=== PATIENT | female | born 1950 | race Caucasian/White ===

== ENCOUNTER → 2018-05-06 12:53 | Outpatient (CLI) | payer MEDICARE, SELFPAY | PROVIDERS: Family Provider Family Medicine; PCP Family Medicine; Visit Provider Anesthesiology Pain Medicine | DX: M54.9 Dorsalgia, unspecified (principal); M79.606 Pain in leg, unspecified | CPT/HCPCS: 72148 ==

== ENCOUNTER → 2018-10-07 12:57 | Outpatient (CLI) | payer MEDICARE, SELFPAY ==
--- NOTE | 2018-10-07 12:59 | RAD_ITS ---
STUDY: X-RAY - LUMBAR SPINE REASON FOR EXAM: Female, 68 years old. Low back pain. TECHNIQUE: AP and flexion extension view(s) of the lumbar spine were obtained. COMPARISON: None FINDINGS: Normal lumbar lordosis. There is a mild dextroscoliosis of the lumbar spine. Grade 1 anterior listhesis of L4 on L5. This is reduced on the extension views. There is retrolisthesis of L2 on L3. This is unchanged during the flexion-extension maneuvers. There is multilevel endplate spondylosis of the lumbar vertebrae. There is multi-level degenerative disc disease with multi-level disc space narrowing. Bilateral hip replacement. Prior cholecystectomy. RAD/L/S Spine Min 4 Views IMPRESSION: Degenerative changes of the spine, as detailed above. Electronically Signed: Ace White, at 10:38 EST , Service support ,
--- OUTSIDE RECORDS SUMMARY | 2018-12-09 17:13 | XMS RPT_ITS ---
:1950 Author Organization [place] Support Name Relationship Address Phone R Unavailable Unavailable Unavailable ASHLEY DONG Unavailable [address] + [place] [address] R Unavailable Unavailable Unavailable ASHLEY DONG Unavailable [address] + [place] [address] NOT GIVEN Unavailable Unavailable Unavailable ASHLEY DONG Unavailable [address] + [place], [place] [phone] ASHLEY DONG Unavailable [address] Unavailable [place], [place] [phone] R Unavailable Unavailable Unavailable ASHLEY DONG Unavailable [address] + [place] [address] NOT GIVEN Unavailable Unavailable Unavailable ASHLEY DONG Unavailable [address] + [place], [place] [phone] ASHLEY DONG Unavailable [address] Unavailable [place], [place] [phone] NOT GIVEN Unavailable Unavailable Unavailable ASHLEY DONG Unavailable [address] + [place], [place] [phone] ASHLEY DONG Unavailable [address] Unavailable [place], [place] [phone] NOT GIVEN Unavailable Unavailable Unavailable ASHLEY DONG Unavailable [address] + [place], [place] [phone] ASHLEY DONG Unavailable [address] Unavailable [place], [place] [phone] Care Team Providers Name Role Phone Sena VASQUEZ Attending Unavailable Sena VASQUEZ Attending Unavailable NITA VASQUEZ MD Admitting Unavailable NITA VASQUEZ MD Attending Unavailable NITA VASQUEZ MD Primary Care Unavailable NITA VASQUEZ MD Consulting Unavailable PROVIDER, UNKNOWN Consulting Unavailable PROVIDER, UNKNOWN Consulting Unavailable PROVIDER, UNKNOWN Consulting Unavailable NITA VASQUEZ MD Admitting Unavailable NITA VASQUEZ MD Attending Unavailable NITA AVSQUEZ MD Primary Care Unavailable NITA VASQUEZ MD Consulting Unavailable PROVIDER, UNKNOWN Consulting Unavailable PROVIDER, UNKNOWN Consulting Unavailable PROVIDER, UNKNOWN Consulting Unavailable PAVITHRA CERON Admitting Unavailable PAVITHRA CERON Attending Unavailable PAVITHRA CERON Primary Care Unavailable NITA VASQUEZ MD Consulting Unavailable PROVIDER, UNKNOWN Consulting Unavailable PROVIDER, UNKNOWN Consulting Unavailable PROVIDER, UNKNOWN Consulting Unavailable NITA VASQUEZ MD Admitting Unavailable NITA VASQUEZ MD Attending Unavailable NITA VASQUEZ MD Primary Care Unavailable NITA VASQUEZ MD Consulting Unavailable PROVIDER, UNKNOWN Consulting Unavailable PROVIDER, UNKNOWN Consulting Unavailable PROVIDER, UNKNOWN Consulting Unavailable Elenita Jerez Attending Unavailable Nita Vasquez Referring Unavailable Elenita Jerez Attending Unavailable Elenita Jerez Referring Unavailable Nita Vasquez Primary Care Unavailable Jarod Littlejohn Attending Unavailable Jarod Littlejohn Referring Unavailable Nita Vasquez Primary Care Unavailable PROBLEMS PROBLEMS DATE TYPE CONDITION / ATTENDING STATUS SOURCE CODE 10/07/2018 Unknown M54.5 - Low Elenita Jerez Active [facility] M54.5(ICD-10) Hospital Repository 09/18/2018 Admitting Unknown / Sena VASQUEZ [facility]ly [facility] diagnosis UNK(Unknown) Hospital Repository PROCEDURES PROCEDURES No Procedure Records FoundRESULTS RESULTS ORTHOPEDIC VISIT Observed: 10/11/2018 Status: F Source: [facility] 10:09 AM [facility] REPOSITORY [facility] [address] [place] [address] OFFICE VISIT Date of Service: 10/07/18 MR#: [id number] Acct: [id number] Name: SHIRLEY DONG Rep #: [id number] : 1950 Provider: Elenita Jerez MD Age/Sex: 68/F [place] [facility] [place]: [place] Intake Vital Signs10/07/18 Height 5 ft 2 in 10/07/18 Weight: 262 lb 10/07/18 Body Mass Index (BMI) 47.9 Intake Visit Reasons: low back Allergies latex Allergy (Verified 10/07/18 13:10) unknown morphine Allergy (Verified 10/07/18 13:10) unknown Sulfa (Sulfonamide Antibiotics) Allergy (Verified 10/07/18 13:10) unknown Medications buprenorphine 7.5 mcg/hour weekly transdermal patch 1 patch TRANSDERMAL Q7D 10/07/18 [History Confirmed 10/07/18] furosemide 40 mg tablet 40 mg PO DAILY 10/07/18 [History Confirmed 10/07/18] levothyroxine 200 mcg tablet 200 mcg PO DAILY 10/07/18 [History Confirmed 10/07/18] tapentadol 75 mg tablet 75 mg PO Q6H PRN 10/07/18 [History Confirmed 10/07/18] tapentadol 75 mg tablet 75 mg PO Q6H PRN 10/07/18 [History Confirmed 10/07/18] HPI low back: Details: SHIRLEY DONG is a 68 year old RHD F here today referred by Dr Littlejohn for low back pain. Patient states that she has low back pain 50% and bilateral lateral hip pain and bilateral thigh strain, left greater than right, 50% for about 10 years with no known injury. She has a history of bilateral hip replacements and bilateral total knee arthroplasties. She states he last saw her surgeon 2 years ago. Patient has increased pain standing and walking and improved with ice, heating, and sitting. She is on a butrans patch and lucna for the past [address] Littlejohn. She also uses voltaren. Patient denies any radiating pain or numbness and tingling. She tried physical therapy about 5 years ago which increased her pain so she was not able to complete it. She has not tried aqua therapy, tens unit. She has tried accupuncture, which helped, but does not continue this. She uses a walker to ambulate due to her pain. Patient notes that she has seen Dr Littlejohn for the past 5 years and alternates L5-S1 epidural injections with SI joint injections. She feels the SI joint injections help more than the L5-S1 SALONI. She has had no spine surgery. She denies bowel or bladder issues or hand dexterity issues. She uses a walker or cane due to pain for the past 5 years. She has depression, hypothyroidism and asthma. She is a retired industrial food production machine operator. She denies nicotine use. ROS Const Reports system reviewed and no additional complaints, except as docu Eyes Reports system reviewed and no additional complaints, except as docu ENT Reports system reviewed and no additional complaints, [facility] Reports system reviewed and no additional complaints, [facility] Resp Reports system reviewed and no additional complaints, [facility] GI Reports system reviewed and no additional complaints, [facility] Reports system reviewed and no additional complaints, [facility] Musc Reports back pain Skin/Breast Reports system reviewed and no additional complaints, except [facility] Neuro Yes system reviewed and no additional complaints, [facility] Psych Reports system reviewed and no additional complaints, [facility] Endo Reports system reviewed and no additional complaints, except as docu Ortho Exam Spine Neuro: Yes Chow's (negative bilaterally), Clonus (none bilaterally), Babinski (downgoing bilaterally), Straight Leg Raise (negative bilaterally) and Light Touch Sensation (intact throughout) General: alert, oriented x3 Skin: Yes dysraphism (none) Capillary Refill <2sec: Yes Palpable Pulses: 1+ dp/pt pulses bilaterally Gait: antalgic, other (able to stand on heels and toes with assistance) Motor: strength 5/5 throughout Sensory Exam: no sensory deficits noted DTR's: Rt Triceps: 2+, Lt Triceps: 2+, Rt Biceps: 2+, Lt Biceps: 2+, Rt Brachioradialis: 2+, Lt Brachioradialis: 2+, Rt Patellar: 2+, Lt Patellar: 2+, Rt Ankle: 2+, Lt Ankle: 2+ Plantar Reflexes: Downgoing: bilateral Coordination: Romberg test normal Details: positive sagittal balance, but will correct to neutral with coaching SPINE TESTING CERVICAL THORACIC LUMBAR SLR: Negative Musculoskeletal General: Yes decreased ROM Cervical Spine: cervical muscular tenderness, pain with cervical ROM Thoracic/Lumbar Spine: straight leg raise negative bilaterally, pain with thoraco-lumbar ROM (pain worse with forward flexion, less painful with extension), thoraco-lumbar ROM limited, paraspinal tenderness Sacroiliac joints: bilateral Strength 0=absent - 5=normal Deltoid R (C5): 5, Deltoid L (C5): 5, R Bicep (C5-6): 5, L Bicep (C5-6): 5, R Wrist Extensor (C6): 5, L Wrist Extensor (C6): 5, R Tricep (C7): 5, L Tricep (C7): 5, R Finger Flexors (C8): 5, L Finger Flexors (C8): 5, R First Dorsal Interossei (C8): 5, L First Dorsal Interossei (C8): 5, R Hip Flexor (L1-3): 5, L Hip Flexor (L1-3): 5, R Quadriceps (L2-4): 5, L Quadriceps (L2-4): 5, R Anterior Tibialis (L4-5): 5, L Anterior Tibialis (L4- 5): 5, R Hamstrings (L5-S1): 5, L Hamstrings (L5-S1): 5, GS (S1): 5, L GS (S1): 5, R Peroneals (S1): 5, L Peroneals (S1): 5 Assessment AND Plan Problems 1. Chronic bilateral low back pain without sciatica M54.5; G89.29 2. Neck pain M54.2 Plan Imaging XR lumbar spine 10/07/2018 reveals diffuse spondylosis with thoracolumbar kyphosis and autofusion. there is mild L4-5 anterolisthesis without increased motion with flexion and extension MRI lumbar spine 05/06/2018 reveals diffuse spondylosis with thorcolumbar kyphosis with autofusion at T11-L1. There is L4-5 spondylolisthesis with bilateral lateral recess stenosis. L2-3, L3-4 spinal stenosis I/R/P: 1. chronic neck and back pain 2. bilateral lateral hip pain, does not extend past the knee 3. SI joint pain 4. chronic opioid use 5. BMI 48 Ms. Dong presents with back pain and SI joint pain. The natural history and course of the symptomatology of back and SI joint pain was discussed in detail with the patient. I answered all questions regarding the mode of onset, pathophysiology, symptoms, imaging findings, treatment options (both non-operative and operative) regarding her diagnosis. It is difficult to assess what component of her discomfort is from her lumbar spinal stenosis/thoracolumbar kyphosis veruss SI joint pain and myofascial pain. She admits to minimal activity. Recommend physical therapy to include aquatherapy. Recommend she return to accupuncture as this has provided her significant improvement of her pain. Recommend TENS unit. Counseled on controlled weight loss. Follow up after completion if pain is not improved or sooner if issues arise. Plan of care discussed. All questions answered. The patient, and daughter verbalized understanding of the disease process and agreed to the treatment plan formulated for this visit. Orders Orders: Coding Level of Care Code Off vis,new,level 4 Diagnoses Chronic bilateral low back pain without sciatica M54.5; G89.29 Back pain location: low back pain Chronicity: chronic Back pain laterality: bilateral Sciatica presence: without sciatica Neck pain M54.2 10/11/18 1009 <Electronically signed by Elenita Jerez MD> Date Elenita Jerez MD Cosigner Signature: Date (if applicable) CC: Jarod Littlejohn MD L/S SPINE MIN 4 Observed: 10/07/2018 Status: F Source: [facility] VIE[facility] 12:59 PM [facility] REPOSITORY [facility] Imaging Services [address] [place] [address] L/S Spine Min 4 Views MR#: [id number] Acct: [id number] Name: SHIRLEY DONG Rep #: [id number] : 1950 F 68 From: Ace White MD PCP: Nita Vasquez MD Status: REG CLI Study: L/S Spine Min 4 Views Date of Exam: 10/07/18 Exam# [id number] Ordering Dr: Elenita Jerez MD STUDY: X-RAY - LUMBAR SPINE REASON FOR EXAM: Female, 68 years old. Low back pain. TECHNIQUE: AP and flexion extension view(s) of the lumbar spine were obtained. COMPARISON: None FINDINGS: Normal lumbar lordosis. There is a mild dextroscoliosis of the lumbar spine. Grade 1 anterior listhesis of L4 on L5. This is reduced on the extension views. There is retrolisthesis of L2 on L3. This is unchanged during the flexion-extension maneuvers. There is multilevel endplate spondylosis of the lumbar vertebrae. There is multi-level degenerative disc disease with multi-level disc space narrowing. Bilateral hip replacement. Prior cholecystectomy. RAD/L/S Spine Min 4 Views IMPRESSION: Degenerative changes of the spine, as detailed above. Electronically Signed: Ace White, at 10:38 EST , Service support , CC: Elenita Jerez MD; Nita Vasquez MD Installer Inspector Final: Signed CBC Collected: 09/18/2018 Status: F Source: [facility] 5:45 PM HOSPITAL REPOSITORY TYPE CODE TESTS RESULT OUT OF RANGE REFERENCE UNITS LAB L200.0100 4.5-10.0 x10(3) Normal WBC 7.0 LAB L200.0200 3.30-5.00 x10(6) Normal RBC 4.57 LAB L200.0210 12.0-16.0 g/dL Normal HGB 13.3 LAB L200.0220 36.0-48.0 % Normal HCT 41.3 LAB L200.0230 80.0-99.0 fl Normal MCV 90.3 LAB L200.0240 28.5-32.9 pg Normal MCH 29.0 LAB L200.0250 33.0-36.0 g/dL Low MCHC 32.1 LAB L200.0260 12.5-15.7 % Normal RDW 15.3 LAB L200.0270 150-450 X10(3) Normal PLT 257 LAB L200.0290 7.5-9.5 fl Low MPV 7.4 LAB L200.0300 45.0-73.0 % Normal NEUT% 58.6 LAB L200.0310 16.0-48.0 % Normal LYMPH% 25.2 LAB L200.0320 4.3-11.2 % Normal MONO% 8.5 LAB L200.0330 0.5-4.9 % High EOS% 6.7 LAB L200.0340 0.0-1.0 % Normal BASO% 1.0 LAB L200.0350 1.40-6.50 x10(3) Normal NEUT# 4.10 LAB L200.0360 1.00-3.50 x10(3) Normal LYMPH# 1.80 LAB L200.0370 0.30-0.80 x10(3) Normal MONO# 0.60 LAB L200.0380 0.00-0.54 x10(3) Normal EOS# 0.50 LAB L200.0390 0.00-0.10 x10(3) Normal BASO# 0.10 Performed By: #### L200.0010 #### ML - [facility] [address] [place] [address] [facility] Collected: 09/18/2018 Status: F Source: [facility] 5:45 PM HOSPITAL REPOSITORY TYPE CODE TESTS RESULT OUT OF RANGE REFERENCE UNITS LAB L100.0060 82-115 mg/dL High GLUCOSE 117 LAB L100.0110 8-23 mg/dL BUN Normal 16 LAB L100.0131 0.50-0.90 mg/dL High CREATININE 1.09 LAB L100.0140 8.8-10.2 mg/dL CALCIUM Normal 9.2 LAB L100.0150 135-145 mmol/L SODIUM Normal 143 LAB L100.0160 3.5-5.0 mmol/L Normal POTASSIUM 4.2 LAB L100.0170 98-107 mmol/L CHLORIDE Normal 104 LAB L100.0180 22-29 mmol/L TCO2 Normal 25 LAB L100.0185 15-22 mmol/L ANION Normal GAP 18.2 LAB L100.0200 6.4-8.3 g/dL TOTAL Normal PROTEIN 7.2 LAB L100.0210 3.5-5.2 g/dL ALBUMIN Normal 3.7 LAB L100.0220 0.2-1.2 mg/dL TOTAL Normal BILIRUBIN 0.3 LAB L100.0240 5-32 U/L AST Normal 27 LAB L100.0250 5-33 U/L ALT Normal 21 LAB L100.0260 35-105 U/L High ALK. PHOS 177 LAB L100.0262 1.5-4.5 g/dL Normal GLOBULIN,CALC 3.5 LAB L100.0264 1.1-2.5 Low A:G RATIO 1.05 LAB L100.0274 eGFR Normal nonAFR Nicki 50 LAB L100.0275 eGFR if Normal AFR NICKI > 60 ml/min/1.73m 2 Result Comment: eGFR >= 60 Indicates normal kidney function. * eGFR IS AN ESTIMATE * (AFR NICKI = ) (non-AFR AM = NON-) MDRD calculation used in the eGFR should not be used to dose medications. For further limitations of the eGFR please refer to the Physician Website or the National Kidney Disease Education Program website (www.nkdep.nih.gov). Performed By: #### L100.0005 #### - LABORATORY [address] [place] [address] TROPONIN T Collected: 09/18/2018 Status: F Source: [place] 5:45 PM [facility] REPOSITORY TYPE CODE TESTS RESULT OUT OF RANGE REFERENCE UNITS LAB L301.0120 0-0.010 ng/mL Normal TROPONIN T <0.010 Performed By: #### L301.0120, L301.0460 #### [facility] [address] [place] [address] PRO-BNP Collected: 09/18/2018 Status: F Source: [place] 5:45 PM [facility] REPOSITORY TYPE CODE TESTS RESULT OUT OF RANGE REFERENCE UNITS LAB L301.0460 pg/mL Normal PRO-BNP 231 Result Comment: HF UNLIKELY: NT-PRO BNP <300 pg/mL HF LIKELY: NT-PRO BNP >450 pg/mL (AGE <50) NT-PRO BNP >900 pg/mL (AGE 50-75) NT-PRO BNP >1800 pg/mL (AGE >75) HF VERY LIKELY: NT-PRO BNP >10,000 pg/mL SOURCE: PRIDE ALGORITHM FOR PRO-BNP; CRITICAL PATHWAYS IN CARDIOLOGY VOLUME 3, NUMBER 4; AUGUST 2004 Performed By: #### L301.0120, L301.0460 #### ML - LABORATORY [address] [place] [address] ALK PHOS ISO Collected: 09/18/2018 Status: F Source: [facility] 5:42 PM HOSPITAL REPOSITORY TYPE CODE TESTS RESULT OUT OF REFERENCE UNITS RANGE LAB L800.0032 39-117 IU/L High ALKALINE 169 PHOSPH Result Comment: Performed at: - [facility] [id number] Paunch Trimmer: Cosme Sharma PhD, Phone: [phone] LAB L800.0034 18-85 % Normal LIVER FRACTION: 47 LAB L800.0036 14-68 % Normal BONE FRACTION: 52 LAB L800.0038 0-18 % Normal INTESTINAL FRAC 1 Result Comment: Performed at: - [facility] [id number] Paunch Trimmer: Cosme Sharma PhD, Phone: [phone] Performed By: #### L800.0029 #### [place] [address] CHEST (TWO VIEWS) Observed: 09/18/2018 Status: F Source: [facility] - CXR 12:00 AM HOSPITAL REPOSITORY [address] [address] Name: SHIRLEY DONG Phys: Sena VASQUEZ M.D. : [birth year] Age: 68 Sex: F Acct: [id number] Loc: LAB Exam Date: 09/18/18 Status: REG I Radiology No.: [id number] Unit Number: [id number] Exam # Type/Exam [id number] RAD / CHEST (TWO VIEWS) - CXR 2 views of the chest Indication: Short of breath Comparison: June 2017 Findings: The lungs and pleural spaces are clear. The cardiac silhouette is within normal size limits. The pulmonary vasculature is unremarkable in appearance. Impression: Clear lungs. Professional interpretation provided by [facility], [place] on [id number]. Thank you for this referral. <<Signature on File>> Reported By: ISI MARKHAM M.D. Signed In NovaPro By: ISI MARKHAM M.D. << Signature on File>> Reported By: ISI MARKHAM M.D. Signed By: ISI MARKHAM M.D. Tests performed at: [place] [address] TSH Collected: 07/14/2018 Status: F Source: [facility] [place] 1:04 PM [facility] REPOSITORY TYPE CODE TESTS RESULT OUT OF RANGE REFERENCE UNITS LAB TSH(LOINC) 0.34 - 5.60 uIU/ml TSH 3.25 Performed By: #### [id number] #### [place] [address] LIPID PROFILE Collected: 07/14/2018 Status: F [facility] REPOSITORY TYPE CODE TESTS RESULT OUT OF REFERENCE UNITS RANGE LAB LIPID PROFILE(LOIN C) LIPID PROFILE Result Comment: LIPID PROFILE LAB TRIGLYCERIDE(LOINC) 0 - 150 mg/dl TRIGLYCERIDE 136 LAB CHOLESTEROL(LOINC) 0 - 200 mg/dl CHOLESTEROL 177 LAB HDL(LOINC) 40 - 60 mg/dl HDL 45 LAB CHOL/HDL(LOINC) 0.0 - 5.0 CHOL/HDL 3.9 LAB LDL(LOINC) 0 - 129 mg/dl LDL 105 Performed By: #### [id number] #### [place] [address] CMP WITH EGFR Collected: 07/14/2018 Status: F [facility] REPOSITORY TYPE CODE TESTS RESULT OUT OF RANGE REFERENCE UNITS LAB CMP with eGFR(LOINC) CMP with eGFR Result Comment: COMPREHENSIVE METABOLIC PANEL LAB SODIUM(LOINC) 136 - 145 mmol/l SODIUM 140 LAB POTASSIUM(LOINC) 3.5 - 5.1 mmol/L POTASSIUM 4.2 LAB CHLORIDE(LOINC) 98 - 107 mmol/L CHLORIDE 102 LAB CO2(LOINC) 21.0 - mmol/L 31.0 CO2 29.2 LAB GLUCOSE(LOINC) 74 - 106 mg/dl GLUCOSE 92 LAB BUN(LOINC) 6 - 20 mg/dl BUN 16 LAB CREATININE(LOINC) 0.6 - 1.2 mg/dl CREATININE 1.1 LAB AST/SGOT(LOINC) 13 - 39 U/L AST/SGOT 21 LAB ALK PHOS(LOINC) 38 - 126 U/L ALK PHOS High 165 LAB CALCIUM(LOINC) 8.6 - mg/dl 10.2 CALCIUM 9.2 LAB TOTAL 6.4 - 8.3 g/dl PROTEIN(LOINC) TOTAL PROTEIN 6.9 LAB ALBUMIN(LOINC) 3.4 - 4.8 g/dL ALBUMIN 4.0 LAB GLOBULIN(LOINC) 1.5 - 3.8 G/DL GLOBULIN 2.9 LAB A/G RATIO(LOINC) 0.9 - 1.6 A/G RATIO 1.4 LAB TOTAL BILI(LOINC) 0.0 - 1.5 mg/dl TOTAL BILI 0.5 LAB B/C RATIO(LOINC) 0 - 30 ratio B/C RATIO 15 LAB ALT/SGPT(LOINC) 8 - 35 U/L ALT/SGPT 17 LAB ANION GAP(LOINC) 10 - 20 mmol/L ANION GAP 13 LAB AGE(LOINC) years AGE 67 LAB eGFR(LOINC) 60 - 999 ML/MINUTE eGFR Low 49 LAB eGFR(AA)(LOINC) 60 - 999 ML/MINUTE eGFR(AA) 60 Result Comment: ACCORDING TO THE NATIONAL KIDNEY DISEASE EDUCATION PROGRAM(NKDE), A NORMAL eGFR IS A VALUE GREATER THAN OR EQUAL TO 60 ML/MIN/1.73 SQ METERS. CHRONIC KIDNEY DISEASE: <60mL/MIN/1.73 SQ METERS KIDNEY FAILURE: <15mL/MIN/1.73 SQ METERS THIS TEST SHOULD ONLY BE USED FOR PATIENTS 18 YEARS OF AGE AND OLDER. Performed By: #### [id number] #### [facility],[address] [place] [address] SPINE LUMBAR Observed: 05/06/2018 Status: F Source: [place] (ROUTINE) 12:56 PM [facility] REPOSITORY [facility] Imaging Services [address] [place] [address] Spine Lumbar (Routine) MR#: [id number] Acct: [id number] Name: SHIRLEY DONG Rep #: [id number] : 1950 F 67 From: Akbar Rosario MD PCP: Nita Vasquez MD Status: REG CLI Study: Spine Lumbar (Routine) Date of Exam: 05/06/18 Exam# [id number] Ordering Dr: Jarod Littlejohn MD STUDY: MRI LUMBAR SPINE WITHOUT CONTRAST REASON FOR EXAM: Female, 67 years old. Severe back and leg pain. TECHNIQUE: Standardized fat and water weighted pulse sequences were obtained in the sagittal and axial planes. COMPARISON: None FINDINGS: T8-T9: (Sagittal only). Minimal anterior posterior marginal spurs. Normal endplates. Normal disc height and morphology. Mild loss of disc hydration. Normal central canal and bilateral intervertebral neural foramina. T9-T10: (Sagittal only). Normal endplates. Normal disc height with mild loss of disc hydration. Normal disc morphology. Normal central canal and bilateral intervertebral neural foramina. T10-T11: (Sagittal only). Normal endplates. Moderate disc space narrowing with moderate loss of disc hydration. No ventral extradural defect. Normal central canal and bilateral intervertebral neural foramina. T11-T12: Anterior marginal spurs and small posterior marginal spurs. Pronounced disc space height narrowing. Normal central canal and bilateral lateral recesses. Mild asymmetric degenerative facet arthropathy. Capacious left intervertebral neural foramen. Deformity of the right facet joint may be posttraumatic. T12-L1: Anterior wedging and ankylosis of the T12 and L1 vertebral bodies. Anterior posterior marginal spurs. Capacious central canal. Mild to moderate degenerative facet arthropathy. Normal bilateral intervertebral neural foramina. Normal lumbar lordosis. There is no substantial scoliosis. Normal conus medullaris that terminates at the upper L1 vertebral body level. L1-2: Prominent anterior marginal spurs and prominent posterior marginal spurs. Old L1 anterior wedge compression fracture. Pronounced loss of disc height with marked irregularities of the vertebral endplates. Moderately pronounced central canal stenosis secondary to prominent dorsal epidural lipomatosis. The AP canal diameter is 6 mm. Mild to moderate asymmetric degenerative facet arthropathy. Asymmetric posterior ligamenta flava hypertrophy. Normal bilateral lateral recesses. Moderate stenosis of the left intervertebral neural foramen. Normal right intervertebral neural foramen. L2-3: Pronounced disc height narrowing with marked loss of disc hydration. Dark irregularity of the vertebral endplates towards the right side is most likely due to degenerative sclerosis. Minimal degenerative retrolisthesis of L2 on L3. No extruded disc fragment. Pronounced flattening central canal stenosis. The AP canal diameter is 3.3 mm. This is secondary to prominent dorsal epidural lipomatosis. Mild posterior ligamenta flava hypertrophy. Mild to moderate asymmetric degenerative facet hypertrophy. Normal bilateral lateral recesses. Normal left intervertebral neural foramen. Mild stenosis of the right intervertebral neural foramen. L3-4: Normal endplates. Mild disc space height narrowing. Moderately pronounced flattening central canal stenosis secondary to prominent dorsal epidural lipomatosis. The AP canal diameter is 6 mm. No extruded disc fragment. Mild to moderate asymmetric degenerative facet hypertrophy. Posterior ligamenta flava hypertrophy. Normal bilateral lateral recesses. Normal bilateral intervertebral neural foramina. L4-5: Normal endplates. Mild disc space height narrowing with degenerative anterolisthesis of L4 on L5. Mild central canal stenosis. The AP canal diameter is 8.4 mm. Prominent left posterior ligamentum flavum hypertrophy. Prominent bilateral mediolateral synovial hypertrophy. Moderate stenosis of the bilateral lateral recesses. Pronounced bilateral degenerative facet hypertrophy. Mild stenosis of the bilateral intervertebral neural foramina. L5-S1: Normal endplates. Normal disc height, hydration and morphology. Normal central canal and bilateral lateral recesses. Moderately pronounced bilateral degenerative facet hypertrophy. Normal bilateral intervertebral neural foramina. Normal visualized sacral ala. Normal visualized paraspinous soft tissue structures. MRI/Spine Lumbar (Routine) IMPRESSION: 1. No MRI evidence of lumbar extruded disc fragment. 2. Pronounced flattening central canal stenosis with pronounced disc space height narrowing at L2-L3 disc level and minimal degenerative retrolisthesis of L2 on L3. 3. Moderately pronounced flattening central canal stenosis at L1-L2 and L3-L4 disc space level secondary to prominent dorsal epidural lipomatosis. 4. Mild degenerative anterolisthesis of L4 on L5 with mild central canal stenosis, pronounced bilateral degenerative facet hypertrophy and moderate stenosis of the bilateral lateral recesses. 5. Moderately pronounced bilateral L5-S1 degenerative facet hypertrophy. 6. Old anterior wedge compression fractures with ankylosis of the T12 and L1 vertebral bodies. 7. Pronounced T11-T12 disc space height narrowing with capacious left T11-T12 intervertebral neural foramen and deformity of the right T11-T12 facet joint. This may be secondary to remote injury. 8. No MRI evidence of acute or subacute compression fractures of the lumbar spine and the included lower thoracic spine. COMMENT: CT of the thoracolumbar junction from at least T10 down to L3 will be very helpful for better bone detail of the old posttraumatic deformity if desired. Electronically Signed: Akbar Rosario MD at 9:30 EDT , Service support , CC: Jarod Littlejohn MD; Nita Vasquez MD Installer Inspector Final: Signed SEDRATE Collected: 11/07/2017 Status: F Source: [facility] 1:05 PM [facility] REPOSITORY TYPE CODE TESTS RESULT OUT OF REFERENCE UNITS RANGE LAB SEDRATE(FELICIANO 0 - 30 mm/hr NC) High SEDRATE 34 Performed By: #### [id number] #### [address] [address] TSH Collected: 11/06/2017 Status: F Source: [facility] 4:10 [facility] REPOSITORY TYPE CODE TESTS RESULT OUT OF RANGE REFERENCE UNITS LAB TSH(LOINC) 0.34 - 5.60 uIU/ml TSH 0.40 Performed By: #### [id number] #### [address] [address] T4 (THYROXINE) TOTAL Collected: 11/06/2017 Status: F Source: [facility] 4:10 PM [facility] REPOSITORY TYPE CODE TESTS RESULT OUT OF RANGE REFERENCE UNITS LAB T4 (THYROXINE) TOTAL(LOINC ) T4 (THYROXINE) TOTAL Result Comment: THYROXINE(T4) LAB T4(LOINC) 6.0 - 12.2 ug/dl T4 9.3 Performed By: #### [id number] #### [address] [address] FERRITIN Collected: 11/06/2017 Status: F [facility] PM [facility] REPOSITORY TYPE CODE TESTS RESULT OUT OF REFERENCE UNITS RANGE LAB FERRITIN(LO 10 - 291 ng/mL INC) FERRITIN 69 Performed By: #### [id number] #### [address] [address] VITAMIN D 1, 25 Collected: 11/06/2017 Status: F [facility] 4:10 PM [facility] REPOSITORY TYPE CODE TESTS RESULT OUT OF REFERENCE UNITS RANGE LAB VITAMIN D 1, 25 DIHYDROXY [QUEST](LOINC) VITAMIN D 1, 25 DIHYDROXY [QUEST] Result Comment: _VITAMIN D 1, 25 DIHYDROXY_ VITAMIN D, 1,25-DIHYDROXY, LC/MS/MS Reported: 11/10/2017 11:03 Status=F TEST RESULT FLAG RANGE UNITS VITAMIN D,1,25 34 18-72 pg/mL 11/10/17.1115.rfl.COMPLETE.AMRR .67837-4 (OH)2,TOTAL VITAMIN D3, 1,25 (OH)2 34 pg/mL 11/10/17.1115.rfl.COMPLETE.AMRR .1649-3 VITAMIN D2, 1,25 (OH)2 <8 pg/mL 11/10/171115.rfl.COMPLETE.AMRR .81162-5 Vitamin D3, 1,25(OH)2 indicates both endogenous production and supplementation. Vitamin D2, 1,25(OH)2 is an indicator of exogeous sources, such as diet or supplementation. Interpretation and therapy are based on measurement of Vitamin D,1,25(OH)2, Total. This test was developed and its analytical performance characteristics have been determined [place] It has not been cleared or approved by the FDA. This assay has been validated pursuant to the CLIA regulations and is used for clinical purposes. Test Performed by [facility], [employer] [place], [address] [place], [place] Oswald Bose M.D., Ph.D., Director of Laboratories , [facility] [id number] Performed By: #### [id number] #### [facility],[address] [place] [address] ALK PHOS ISOENZYMES Collected: 10/27/2017 Status: F Source: [facility] [QUEST] 2:25 PM [facility] REPOSITORY TYPE CODE TESTS RESULT OUT OF REFERENCE UNITS RANGE LAB ALK PHOS ISOENZYMES [QUEST](LOINC) ALK PHOS ISOENZYMES [QUEST] Result Comment: _ALK PHOS ISOENZYMES_ ALKALINE PHOSPHATASE ISOENZYMES Reported: 10/31/2017 04:00 Status=F TEST RESULT FLAG RANGE UNITS ALKALINE PHOSPHATASE 162 H 33-130 U/L 10/31/17.411.rfl.COMPLETE.AMRR .6768-6 LIVER ISOENZYME 55 25-69 % 10/31/17.0412.rfl.COMPLETE.AMRR BONE ISOENZYME 45 28-66 % 10/31/17.0412.rfl.COMPLETE.AMRR .00894-7 INTESTINAL ISOENZYME 0 L 1-24 % 10/31/17.0412.rfl.COMPLETE.AMRR MACROHEPATIC ISOENZYME 0 <=0 % 10/31/17.0412.rfl.COMPLETE.AMRR .70172-2 PLACENTAL ISOENZYME 0 <=0 % 10/31/17.2.rfl.COMPLETE.AMRR .27774-2 Test Performed by [facility], [facility], [address] [place] [address] Oswald Bose M.D., Ph.D., Director of Laboratories , [facility] [id number] Performed By: #### [id number] #### [facility],[address] [place] [address] CBC Collected: 10/22/2017 Status: F Source: [facility] 4:30 PM [facility] REPOSITORY TYPE CODE TESTS RESULT OUT OF RANGE REFERENCE UNITS LAB CBC(LOINC) CBC Result Comment: CBC-COMPLETE BLOOD COUNT LAB WBC(LOINC) 4.5 - 10.8 x 10EE3/UL WBC 8.4 LAB RBC(LOINC) 4.10 - x 10EE6/UL 5.30 RBC 4.53 LAB HEMOGLOBIN(LOINC) 12.0 - g/dl 16.0 HEMOGLOBIN 13.3 LAB HEMATOCRIT(LOINC) 34.0 - % 46.0 HEMATOCRIT 40.1 LAB MCV(LOINC) 80 - 99 fl MCV 89 LAB MCH(LOINC) 27 - 33 pg MCH 29 LAB MCHC(LOINC) 32 - 36 X10 3 MCHC 33 LAB RDW/CV(LOINC) 12.0 - % 15.6 RDW/CV 14.9 LAB PLATELET(LOINC) 150 - 450 x10EE3/UL PLATELET 255 LAB MPV(LOINC) 6.6 - 10.5 fl MPV 8.2 Result Comment: AUTOMATED DIFFERENTIAL LAB NEUT %(LOINC) 46.0 - 76.0 % NEUT % 61.7 LAB LYMPH %(LOINC) 20.0 - 45.0 % LYMPH % 26.8 LAB MONOS %(LOINC) 0.0 - 10.0 % MONOS % 7.5 LAB EO %(LOINC) 0.0 - 7.0 % EO % 2.8 LAB BASO %(LOINC) 0.0 - 2.0 % BASO % 1.2 LAB Lymph #(LOINC) 0.80 - 2.80 x10EE3/U L Lymph # 2.20 LAB Neut #(LOINC) 1.50 - 7.10 x10EE3/U L Neut # 5.20 LAB [place] #(LOINC) 0.20 - 1.00 x10EE3/U L [place] # 0.60 LAB EO #(LOINC) 0.00 - 0.50 x10EE3/U L EO # 0.20 LAB Baso #(LOINC) 0.00 - 0.10 x10EE3/U L Baso # 0.10 LAB MANUAL DIFF(LOINC) MANUAL DIFF N/A LAB MORPHOLOGY(LOINC ) MORPHOLOGY N/A Result Comment: {CD] Performed By: #### [id number] #### [facility],[address] [place] [address] CMP WITH EGFR Collected: 10/22/2017 Status: F Source: [facility] 4:30 PM [facility] REPOSITORY TYPE CODE TESTS RESULT OUT OF RANGE REFERENCE UNITS LAB CMP with eGFR(INC) CMP with eGFR Result Comment: COMPREHENSIVE METABOLIC PANEL LAB SODIUM(LOINC) 136 - 145 mmol/l SODIUM 139 LAB POTASSIUM(LOINC) 3.5 - 5.1 mmol/L POTASSIUM 4.0 LAB CHLORIDE(LOINC) 98 - 107 mmol/L CHLORIDE 103 LAB CO2(LOINC) 21.0 - mmol/L 31.0 CO2 28.1 LAB GLUCOSE(LOINC) 74 - 106 mg/dl GLUCOSE 88 LAB BUN(LOINC) 6 - 20 mg/dl BUN High 25 LAB CREATININE(LOINC) 0.6 - 1.2 mg/dl CREATININE 1.1 LAB AST/SGOT(LOINC) 13 - 39 U/L AST/SGOT 19 LAB ALK PHOS(LOINC) 38 - 126 U/L ALK PHOS High 133 LAB CALCIUM(LOINC) 8.6 - mg/dl 10.2 CALCIUM 9.0 LAB TOTAL 6.4 - 8.3 g/dl PROTEIN(LOINC) TOTAL PROTEIN 6.9 LAB ALBUMIN(LOINC) 3.4 - 4.8 g/dL ALBUMIN 3.8 LAB GLOBULIN(LOINC) 1.5 - 3.8 G/DL GLOBULIN 3.1 LAB A/G RATIO(LOINC) 0.9 - 1.6 A/G RATIO 1.2 LAB TOTAL BILI(LOINC) 0.0 - 1.5 mg/dl TOTAL BILI 0.4 LAB B/C RATIO(LOINC) 0 - 30 ratio B/C RATIO 23 LAB ALT/SGPT(LOINC) 8 - 35 U/L ALT/SGPT 20 LAB ANION GAP(LOINC) 10 - 20 mmol/L ANION GAP 12 LAB AGE(LOINC) years AGE 67 LAB eGFR(LOINC) 60 - 999 ML/MINUTE eGFR Low 49 LAB eGFR(AA)(LOINC) 60 - 999 ML/MINUTE eGFR(AA) 60 Result Comment: ACCORDING TO THE NATIONAL KIDNEY DISEASE EDUCATION PROGRAM(NKDE), A NORMAL eGFR IS A VALUE GREATER THAN OR EQUAL TO 60 ML/MIN/1.73 SQ METERS. CHRONIC KIDNEY DISEASE: <60mL/MIN/1.73 SQ METERS KIDNEY FAILURE: <15mL/MIN/1.73 SQ METERS THIS TEST SHOULD ONLY BE USED FOR PATIENTS 18 YEARS OF AGE AND OLDER. Performed By: #### [id number] #### [place] [address] TSH Collected: 10/22/2017 Status: F Source: [facility] 4:30 PM [facility] REPOSITORY TYPE CODE TESTS RESULT OUT OF RANGE REFERENCE UNITS LAB TSH(LOINC) 0.34 - 5.60 uIU/ml TSH 1.12 Performed By: #### [id number] #### [place] [address] IRON Collected: 10/22/2017 Status: F Source: [facility] 4:30 PM [facility] REPOSITORY TYPE CODE TESTS RESULT OUT OF RANGE REFERENCE UNITS LAB IRON(LOINC) 50 - 170 ug/dl Low IRON 47 Performed By: #### [id number] #### [place] [address] ALLERGIES ALLERGIES DATE TYPE / CODE NAME / CODE REACTION SEVERITY SOURCE 10/07/2018 Drug Sulfa Unknown Unknown [facility] All[facility]/4160 (Sulfonamide [place] [address](SNOMED Antibiotics)/ Repository CT) [id number](RX NORM) 10/07/2018 Drug morphine/F006 Unknown Unknown [facility] Allergy/4160 500743(RXNORM [facility](SNOMED ) Repository CT) 10/07/2018 Drug latex/[id number] Unknown Unknown [facility] Allergy/4160 921(RXNORM) [place] [id number](SNOMED Repository CT) ENCOUNTERS ENCOUNTERS ADMIT/DISCHARGE ACCOUNT ADMITTING ENCOUNTER LOCATION SOURCE NUMBER CLASS 10/07/2018 [id number] [address] [facility] Repository 10/07/2018/ [id number] Ambulatory BMSBuilding:B [place] 9 1 MS.SHOSHANA [facility] Repository 10/03/2018 [id number] Ambulatory UNIBuilding:C [place] 5 XOCHITL [facility] Repository 09/18/2018 [id number] Ambulatory UNIBuilding:L [place] 9 AB [facility] Repository 07/14/2018/ [id number] NITA VASQUEZ Ambulatory [place] 8 [facility] Repository 05/06/2018 [id number] Ambulatory [place] [facility] 7 [facility] ing:MRI Repository 11/06/2017/ [id number] OSMANY, [facility] Repository 10/27/2017/ [id number] NITA VASQUEZ Ambulatory [facility] 8 [facility] Repository 10/22/2017/ [id number] NITA VASQUEZ Ambulatory [facility] 8 [facility] Repository PAYERS PAYERS ENCOUNTER GUARANTOR PAYER SUBSCRIBER SOURCE 10/07/2018 SHIRLEY J Primary SHIRLEY J [facility] [id number] Insurance:HUMANA SAYREDOB: [facility] [address] MEDICARE PP[place]olicy [id number] Number: Repository [id number]: 330 [id number] [phone] (HP) Date:[id number] [address] [place] [phone]: 10/07/2018 Secondary NOT GIVENUNK [facility] Insurance:SELF PAY [facility] Number: Effective Repository Date:2018-10-07 10/07/2018 SHIRLEY J Primary SHIRLEY J [place] [id number] Insurance:HUMANA SAYREDOB: [facility] [address] MEDICARE PPOPolicy [id number] Number: Repository [id number]: 330 [id number] [phone] (HP) Date:[id number] [address] [place] [phone]: 10/07/2018 Secondary NOT GIVENUNK [facility] Insurance:SELF PAY [facility] Number: Effective Repository Date:2018-10-07 10/03/2018 SHIRLEY J Primary SHIRLEY Maribell ROMAN [facility] [id number] Insurance:[facility] [place], [place] Number: [id number]: 330 [id number] [phone] (HP) Date:[address] [place] [address]QV: 09/18/2018 SHIRLEY J Primary SHIRLEY Maribell ROMAN [facility] [id number] Insurance:[facility] CHOICE MEDICAREPolicy Repository [place], [place] Number: [id number]: (330) [id number] [phone] (HP) Date:[address] [place] [address]EI: 07/14/2018 SHIRLEY SAYREDOB: Primary SHIRLEY Maribell Boyd [id number] Insurance:HUMAN SAYREDOB: [facility] [address] [employer] [id number] [place] [address] Repository , [place] Number: RDNWSTRASJENNIFER, [id number]: [id number] [place] [id number] Date:Plan Name: () 05/06/2018 SHIRLEY J Primary SHIRLEY Maribell [facility] [id number] Insurance:HUMAN SAYREDOB: [facility] [id number] Number: Repository [id number]: 330 [id number] [phone] (HP) Date:[id number] [address] [place] [phone]: 05/06/2018 Secondary NOT GIVENUNK [facility] Insurance:SELF PAY [facility] Number: Effective Repository Date:2018-05-05 11/06/2017 SHIRLEY SAYREDOB: Primary SHIRLEY Maribell Boyd [id number] Insurance:HUMAN SAYREDOB: [facility] [address] MEDICARE ADVANTAGE [id number] [address] Repository [place] Number: RDNWSTRAASIYA, [id number]: [id number] [place] [id number] Date:Plan Name: () 10/27/2017 SHIRLEY SAYEDUARDOOB: Primary SHIRLEY SAYREDOB: Donn [place] [id number] Insurance:HUMANA [id number] [address] MEDICARE ADVANTAGE [address] [facility] [place], [facility], Repository [place] Number: [place] [id number]: [id number] Date:Plan Name: () 10/22/2017 SHIRLEY SAYEDUARDOOB: Primary SHIRLEY SAYREDOB: Donn [place] [id number] Insurance:HUMANA [id number] [address] MEDICARE ADVANTAGE [address] [facility] [place], [facility], Repository [place] Number: [place] [id number]: [id number] Date:Plan Name: ()
== END ==
PROVIDERS: Family Provider Family Medicine; PCP Family Medicine; Referring Provider Orthopaedic Surgery; Visit Provider Orthopaedic Surgery
DX: M54.5 Low back pain (principal)
CPT/HCPCS: 72110

== ENCOUNTER → 2019-11-25 10:39 | Outpatient (CLI) | payer MEDICARE, SELFPAY ==
[2019-11-25 14:26] LABS: Amphetamine Urine VISTA NEGATIVE (<1000 ng/mL); Barbiturate Urine VISTA NEGATIVE (< 200 ng/mL); Benzodiazepine Urine VISTA NEGATIVE (< 200 ng/mL); Cocaine Urine VISTA NEGATIVE (< 300 ng/mL); Ecstacy Urine VISTA NEGATIVE (< 500 ng/mL); Methadone Urine VISTA NEGATIVE (< 300 ng/mL); PCP Urine VISTA NEGATIVE (< 25 ng/mL); THC Urine VISTA NEGATIVE (< 50 ng/mL); Vista UDS pH Range 5
== END ==
PROVIDERS: PCP Family Medicine; Referring Provider Anesthesiology Pain Medicine; Visit Provider Anesthesiology Pain Medicine
DX: F11.20 Opioid dependence, uncomplicated (principal)
CPT/HCPCS: 80307

== ENCOUNTER → 2020-07-26 10:44 | Outpatient (CLI) | payer MEDICARE, SELFPAY ==
--- NOTE | 2020-07-26 11:15 | RAD_ITS ---
STUDY: X-RAY - CERVICAL SPINE REASON FOR EXAM: Female, 69 years old. CHRONIC PAIN, NKI TECHNIQUE: 3 view(s) of the cervical spine were obtained. COMPARISON: None FINDINGS: Normal anterior atlantoaxial articulation. Normal odontoid process. There is straightening of the normal cervical lordosis. There is multi-level endplate spondylosis. There is multi-level degenerative disc disease with multilevel disc space narrowing. Normal visualized intervertebral neuroforamina. The soft tissue structures are unremarkable. RAD/Cerv Spine 2 or 3 Views IMPRESSION: Multilevel spondylosis and disc space narrowing. Electronically Signed: Ace White, at 13:08 EST , Service support ,
== END ==
PROVIDERS: PCP Family Medicine; Referring Provider Anesthesiology Pain Medicine; Visit Provider Anesthesiology Pain Medicine
DX: M54.2 Cervicalgia (principal)
CPT/HCPCS: 72040

== ENCOUNTER 2021-11-07 13:23 | Outpatient (CLI) | payer MEDICARE, SELFPAY ==
--- NOTE | 2021-11-07 13:32 | RAD_ITS ---
We are attempting to reach an attending provider to discuss findings. An addendum with communication details will be sent when the communication is complete. STUDY: X-RAY - LUMBAR SPINE REASON FOR EXAM: Female, 71 years old. FALL technologist reports the patient fell today. TECHNIQUE: 2 view(s) of the lumbar spine were obtained. COMPARISON: October 07, 2018 lumbar spine x-ray FINDINGS: There is abnormal interval increased angulation, kyphosis, at the level of L1 L2 widened appearance of the facets and posterior disc space with retrolisthesis. There is a perched appearance of the L1 vertebral body over the mid aspect of the L2 vertebral body. There is severe disc space narrowing at L1-L2. There is severe disc space narrowing at L2-L3. There are bilateral hip arthroplasties. There is postoperative change in the right upper quadrant status post cholecystectomy. RAD/Lumbar Spine 2 or 3 Views IMPRESSION: Findings are suspicious for fracture injury at the level of L1-L2 with a widened appearance of the posterior facets and elements. Consider possible age indeterminate versus acute 3 column or displaced Chance fracture and interval instability when compared to prior study. Recommend further evaluation with CT and/or MRI of the lumbar spine at the patient''s earliest convenience. Electronically Signed: Keely Ochoa MD at 8:26 EST Reading Location ID and State: [facility] / [place] Tel , Service support ,
== END 2021-11-07 23:59 | disposition home or self-care (01) ==
LOC: RAD 13:31
PROVIDERS: PCP Family Medicine; Referring Provider Anesthesiology Pain Medicine; Visit Provider Anesthesiology Pain Medicine
DX: S39.92XA Unspecified injury of lower back, initial encounter (principal)
CPT/HCPCS: 72100

== ENCOUNTER 2021-11-16 15:41 | Outpatient (CLI) | payer MEDICARE, SELFPAY ==
--- NOTE | 2021-11-16 15:52 | MRI_ITS ---
STUDY: MR Spine Lumbar W/O Contrast 11/16/2021 9:54 PM REASON FOR EXAM: Female, 71 years old. Back pain RADICULOPATHY, back pain, hip pain TECHNIQUE: MR Spine Lumbar W/O Contrast Standardized fat and water weighted pulse sequences were obtained. COMPARISON: May 06 2018 2:18pm FINDINGS: T12-L1: Loss of intervertebral disc height. There is endplate spondylosis of the vertebral body. Normal central canal and intervertebral neuroforamina. There is bilateral facet arthropathy. Normal lumbar lordosis. There is no substantial scoliosis. Normal conus medullaris that terminates at the L1. L1-2: Loss of intervertebral disc height. There is endplate spondylosis of the vertebral body. There is bilateral facet arthropathy. Stable compression deformity of L1. This causes increased kyphosis of the thoracic curvature. Moderate spinal stenosis. Bilateral neural foraminal stenosis. Compression of exiting bilateral L1 nerve roots. L2-3: Loss of intervertebral disc height. There is endplate spondylosis of the vertebral body. Severe narrowing of the intervertebral neuroforamina. Compression of exiting bilateral L2 nerve roots. There is bilateral facet arthropathy. L3-4: Loss of intervertebral disc height. There is endplate spondylosis of the vertebral body. Normal central canal and intervertebral neuroforamina. There is bilateral facet arthropathy. Posterior disc bulge. No spinal stenosis. L4-5: Loss of intervertebral disc height. There is endplate spondylosis of the vertebral body. Normal central canal and intervertebral neuroforamina. There is bilateral facet arthropathy. Mild grade 1 anterolisthesis of L4 on L5. There is bilateral ligamentum flavum thickening. L5-S1: Loss of intervertebral disc height. There is endplate spondylosis of the vertebral body. There is bilateral facet arthropathy. Normal central canal and intervertebral neuroforamina. Normal visualized sacral ala. Normal visualized paraspinous soft tissue structures. MRI/Spine Lumbar (Routine) IMPRESSION: Multilevel degenerative changes, as described above. No significant change from the prior study. L2-3: Severe narrowing of the intervertebral neuroforamina. Compression of exiting bilateral L2 nerve roots. Electronically Signed: Huan Chavira MD at 21:59 EST ,
== END 2021-11-16 23:59 | disposition home or self-care (01) ==
PROVIDERS: PCP Family Medicine; Visit Provider Anesthesiology Pain Medicine
DX: M54.16 Radiculopathy, lumbar region (principal)
CPT/HCPCS: 72148